=== PATIENT | male | born 1965 | race Caucasian/White ===

== ENCOUNTER → 2016-09-15 | Outpatient (CLI) | payer MEDICARE | LOC: KOH-I 14:39 | DX: M54.2 Cervicalgia (principal); M25.531 Pain in right wrist; Z98.890 Other specified postprocedural states; M47.812 Spondylosis without myelopathy or radiculopathy, cervical region | CPT/HCPCS: 72050; 73110 ==

== ENCOUNTER → 2016-09-28 | Outpatient (CLI) | payer MEDICARE | LOC: KOH-I 11:30 | DX: M54.2 Cervicalgia (principal); M25.531 Pain in right wrist; M50.823 Other cervical disc disorders at C6-C7 level; M99.71 Connective tissue and disc stenosis of intervertebral foramina of cervical region; M50.20 Other cervical disc displacement, unspecified cervical region | CPT/HCPCS: 72141; 73200 ==

== ENCOUNTER → 2020-08-17 | Outpatient (CLI) | payer OTHER | LOC: EMI 15:59 | DX: M54.5 Low back pain (principal); M51.26 Other intervertebral disc displacement, lumbar region; M48.061 Spinal stenosis, lumbar region without neurogenic claudication | CPT/HCPCS: 72148 ==